=== PATIENT | male | born 1955 | race Two or more races ===

== ENCOUNTER 2022-03-25 09:59 | Inpatient (IN) | payer OTHER ==
[~2022-03-25] VITALS: Ht 170.2 cm; Wt 63.5 kg
[2022-03-25] MEDS ORDERED: SINEMET 25-1001 EACH PO (10:24)
[2022-03-25] MEDS ORDERED: CONGENTIN PO (10:25)
--- NOTE | 2022-03-25 10:25 | NUR ---
SE RECIBE PTE CON ENCEFALITIS AUTOINMUNE. HIJOS REFIEREN PTE NO SCHULER DELLA AL RADHA EN 6 VENEGAS. SE SHELLY S/V Y SE UBICA PTE EN AREA DE OBSERVACION, PARA EVALUACION MEDICA. PTE ESTA UBICADO POR EL MOMENTO EN PASILLO, HASTA QUE SE DESOCUPEN CAMILLAS.
--- NOTE | 2022-03-25 13:37 | NUR ---
RN EASTON ORIENTA A PTE SOBRE TRATAMIENTO A SEGUIR, FAMILIAR REFIERE ENTENDER. LE COLECTA MUESTRAS SE CANALIZA Y SE ADMINISTRA MEDICAMENTO JOHNNIE ORDEN MEDICA UTULIZANDO MEDIDAS ASEPTICAS. PENDIENTE CT
--- NOTE | 2022-03-25 15:58 | NUR ---
PTE AL MOMENTO DE ENTREGA DE TURNO SE ENCUENTRA EN ESTUDIO DE CT.
== END 2022-03-31 17:27 | disposition home or self-care (01) | DRG 392 ==
LOC: ER 09:59 → MEDJ 22:48
PROVIDERS: ADMIT Internal Medicine; ATTEND Internal Medicine
DX: K59.03 Drug induced constipation (principal); K52.9 Noninfective gastroenteritis and colitis, unspecified; G31.83 Neurocognitive disorder with Lewy bodies; F02.80 Dementia in other diseases classified elsewhere, unspecified severity, without behavioral disturbance, psychotic disturbance, mood disturbance, and anxiety; G30.9 Alzheimer's disease, unspecified